=== PATIENT | male | born 1990 | race Caucasian/White ===

== ENCOUNTER 2019-02-24 14:00 | Emergency (ER) | payer OTHER ==
[2019-02-24 14:11] VITALS: BP 136/85
[2019-02-24] MEDS ORDERED: DEXAMETHASONE 10 MG/ML VIAL PO STA (15:00)
[2019-02-24] MEDS ORDERED: PENICILLIN VK 250 MG TABLET PO STA (15:00)
[2019-02-24] MEDS ORDERED: CHERRY SYRUP 10 ML UDC PO ONE (15:00)
--- NOTE | 2019-02-24 15:05 | ED Physician Documentation ---
History of Present Illness - Stated complaint Stated Complaint: SORE THROAT - Chief complaint Chief Complaint: Heent - History obtained from History obtained from: Patient - History of Present Illness Timing: How many days ago (3) Pain level max: 7 Pain level now: 6 - Additonal information Additional information: 20-year-old male with a sore throat for the past 2 to 3 days. Took a dose of penicillin yesterday. Concerned it is possible strep. Worse with swallowing. Nothing makes it better. Review of Systems Nose: reports: Rhinorrhea / runny nose Throat: reports: Sore throat Respiratory: denies: Cough GI: denies: Abdominal Pain, Nausea, Vomiting, Diarrhea Skin: denies: Rash Musculoskeletal: denies: Neck pain, Back pain Neurologic: denies: Headache PD PAST MEDICAL HISTORY - Past Medical History Past Medical History: No - Past Surgical History Past Surgical History: No - Present Medications Home Medications: Ambulatory Orders Medication Instructions Recorded Confirmed Ibuprofen [Motrin] 800 mg PO Q8H PRN #30 tablet 02/24/19 Penicillin V Potassium 500 mg PO Q6HR #40 tablet 02/24/19 - Allergies Allergies/Adverse Reactions: Allergies Allergy/AdvReac Type Severity Reaction Status Date / Time No Known Drug Allergies Allergy Verified 02/24/19 14:05 - Social History Does the pt smoke?: No Smoking Status: Never smoker Does the pt drink ETOH?: No Does the pt have substance abuse?: No - Immunizations Immunizations are current?: Yes - POLST Patient has POLST: No PD ED PE NORMAL - Vitals Vital signs reviewed: Yes - General General: Alert and oriented X 3, No acute distress, Well developed/nourished - HEENT HEENT: PERRL, Moist mucous membranes, Other (Moderate posterior oropharyngeal erythema with out tonsillar exudates. Uvula midline.) - Neck Neck: Supple, no meningeal sign, Other (Shotty anterior lymphadenopathy) - Cardiac Cardiac: RRR, Strong equal pulses - Respiratory Respiratory: No respiratory distress, Clear bilaterally - Abdomen Abdomen: Soft, Non tender, Non distended - Derm Derm: Warm and dry, No rash - Neuro Neuro: Alert and oriented X 3 - Psych Psych: Normal mood, Normal affect Results - Vitals Vitals: Vital Signs - 24 hr 02/24/19 02/24/19 14:06 14:26 Temperature 37.3 C Heart Rate 101 H Respiratory 16 Rate Blood Pressure 136/85 H O2 Saturation 100 Oxygen O2 Source Room air - Labs Labs: Laboratory Tests 02/24/19 14:30 Group A Strep Rapid POSITIVE H PD MEDICAL DECISION MAKING - ED course Complexity details: reviewed results, re-evaluated patient, considered differential, d/w patient ED course: Patient with strep pharyngitis. Will place on penicillin. Given dexamethasone here. He is well-appearing, nontoxic. Afebrile. No peritonsillar or retropharyngeal abscess. Patient counseled regarding signs and symptoms for which I believe and urgent re-evaluation would be necessary. Patient with good understanding of and agreement to plan and is comfortable going home at this time This document was made in part using voice recognition software. While efforts are made to proofread this document, sound alike and grammatical errors may occur. Departure - Departure Disposition: 01 Home, Self Care Clinical Impression: Strep pharyngitis Condition: Good Instructions: ED Strep Pharyngitis Conf Follow-Up: EDG[facility] Morse [Provider Group] - Within 1 week Prescriptions: Penicillin V Potassium 500 mg PO Q6HR #40 tablet Ibuprofen [Motrin] 800 mg PO Q8H PRN #30 tablet PRN Reason: PAIN &/OR FEVER Comments: Follow-up with your doctor in 1 week if not better. Take all antibiotics until gone. Return if you worsen. Discharge Date/Time: 02/24/19 15:32
== END 2019-02-24 15:32 | disposition home or self-care (01) ==
LOC: ED 14:00
DX: J02.0 Streptococcal pharyngitis (principal)
CPT/HCPCS: 87430; 99283; 99284; A9270

== ENCOUNTER 2021-12-19 21:01 | Emergency (ER) | payer OTHER ==
[2021-12-19 21:20] VITALS: BP 146/76
[2021-12-19] MEDS ORDERED: CEPHALEXIN 250 MG Prepack 8 CAP BOTTLE PO STA (21:47)
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
== END 2021-12-19 22:22 | disposition home or self-care (01) ==
LOC: ED 21:01
DX: T81.40XA Infection following a procedure, unspecified, initial encounter (principal); L76.82 Other postprocedural complications of skin and subcutaneous tissue; Y83.8 Other surgical procedures as the cause of abnormal reaction of the patient, or of later complication, without mention of misadventure at the time of the procedure
CPT/HCPCS: 11000; 87070; 87181; 87205

== ENCOUNTER 2022-07-17 16:49 | Emergency (ER) | payer OTHER ==
[2022-07-17 17:04] VITALS: BP 154/95
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
[2022-07-17] MEDS ORDERED: oxyCODONE 5 MG TABLET PO STA ×2 (18:09→20:18)
[2022-07-17] MEDS ORDERED: LIDOCAINE 2%-EPI 1:100000 20 ML MDV SUBQ STA (18:56)
[2022-07-17] MEDS ORDERED: LIDOCAINE MPF 2%-EPI 1:200000 20 ML VIAL ONE (19:04)
[2022-07-17] MEDS ORDERED: LIDOCAINE 2% 10 ML MDV SUBQ ONE (20:01)
[2022-07-17] MEDS ORDERED: DOXYCYCLINE 100 MG TABLET PO STA (20:01)
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
== END 2022-07-17 20:25 | disposition home or self-care (01) ==
LOC: ED 16:49
DX: S01.311A Laceration without foreign body of right ear, initial encounter (principal); V47.6XXA Car passenger injured in collision with fixed or stationary object in traffic accident, initial encounter; Y93.89 Activity, other specified; Y92.410 Unspecified street and highway as the place of occurrence of the external cause
CPT/HCPCS: 99282; 99284; A9270

== ENCOUNTER 2023-02-03 13:20 | Emergency (ER) | payer OTHER ==
[2023-02-03 13:46] VITALS: BP 149/94; O2SAT 98
--- OUTSIDE RECORDS SUMMARY | 2023-02-03 14:09 | EXTERNAL MEDICAL SUMMARY RPT | Continuity of Care Document ---
Author Name Unknown Address [address] [place] [address] Phone Organization [facility] Address [address] [place] [address] Phone Problems date description facility 2023-01-04 09:35 [facility] 2023-01-04 09:35 Shortness of breath [facility] 2023-01-04 09:35 Nondisplaced fractur e of shaft of second metacarpal bone, [facility] 2023-01-04 09:35 Unspecified fracture of shaft of left femur, [facility] 2023-01-04 13:25 Shortness of breath [facility] Results/Labs test date facility value unit notes
--- NOTE | 2023-02-03 14:12 | XRAY Report ---
PROCEDURE: Shoulder 3 View LT INDICATIONS: pain TECHNIQUE: 3 views of the shoulder were acquired. COMPARISON: None. FINDINGS: Bones: No fractures or dislocations. No suspicious bony lesions. Visualized ribs appear intact. Soft tissues: No suspicious soft tissue calcifications. The visualized lungs are within normal limi ts. IMPRESSION: No acute bony abnormality. Reviewed by: Faheem Bishop MD on 02/03/2023 2:11 PM PDT Approved by: Faheem Bishop MD on 02/03/2023 2:11 PM PDT Station ID: [id number]
--- NOTE | 2023-02-03 14:15 | ED Physician Documentation ---
PD HPI UPPER EXT INJURY - Stated complaint Stated Complaint: LT SHOULDER PX - Chief complaint Chief Complaint: Ext Problem - History obtained from History obtained from: Patient - Additonal information Additional information: Patient is a 32-year-old male presenting for evaluation of left shoulder pain that has been hurting for the past 6 weeks. Patient states that he was doing a handstand while playing with his children and felt a pop and since then it has been hurting. He has tried conservative therapies with acetaminophen and ibuprofen without any improvement. He thought the pain would get better but it has not. He reports the pain feels worse at night. He has not been to his PCP or anyone else for prior evaluation. Denies prior injuries to this shoulder. Review of Systems Constitutional: denies: Fever Cardiac: denies: Chest pain / pressure Respiratory: denies: Dyspnea Musculoskeletal: reports: Joint pain Neurologic: denies: Head injury PD PAST MEDICAL HISTORY - Past Surgical History Past Surgical History: Yes Ortho: Other - Present Medications Home Medications: Ambulatory Orders Medication Instructions Recorded Confirmed HYDROcod/ACETAM 5/325 [[place] 5/325] 1 tablet PO Q6H PRN #12 tablet 02/03/23 - Allergies Allergies/Adverse Reactions: Allergies Allergy/AdvReac Type Severity Reaction Status Date / Time No Known Drug Allergies Allergy Verified 07/17/22 17:04 - Social History Does the pt smoke?: No Smoking Status: Never smoker Does the pt drink ETOH?: No Does the pt have substance abuse?: No - Immunizations Immunizations are current?: Yes - POLST Patient has POLST: No PD ED PE NORMAL - General General: Alert and oriented X 3, No acute distress, Well developed/nourished - HEENT HEENT: Atraumatic - Neck Neck: Supple, no meningeal sign, No bony TTP, C-Spine cleared by NEXUS criteria - Cardiac Cardiac: RRR, Strong equal pulses - Respiratory Respiratory: No respiratory distress - Back Back: No spinal TTP - Derm Derm: Warm and dry - Extremities Extremities: No deformity, Other (Tenderness to anterior left shoulder with no deformities, able to abduct to 90 degrees and reports pain past 90 degrees, able to touch opposite shoulder with his left hand, pain with range of motion behind his back,) Results - Vitals Vitals: Vital Signs - 24 hr 02/03/23 13:33 Temperature 36.7 C Heart Rate 95 Respiratory 16 Rate Blood Pressure 149/94 H O2 Saturation 98 Oxygen O2 Source Room air PD Medical Decision Making - ED course Complexity details: reviewed results, re-evaluated patient, d/w patient ED course: Patient is a 32-year-old presenting for evaluation of left shoulder pain after injury 6 weeks ago. No deformities noted on exam. Exam does not suggest dislocation. X-ray was obtained which I reviewed I see no fracture or dislocation. Discussed other etiologies for his pain and that close follow-up at the [facility] is required given the duration of his symptoms. Patient has not had any improvement in his symptoms with use of kand-ixv-nyqghlq medications I did prescribe a small amount of narcotic medications to be used sparingly. Patient was also given a sling to use for support but was also advised to range of motion his arm several times a day to avoid a frozen shoulder. Patient is advised on concerning symptoms to return for. Departure - Departure Disposition: 01 Home, Self Care Clinical Impression: Injury of left shoulder Condition: Stable Instructions: ED Shoulder Pain [facility] Follow-Up: EDG[facility] Morse [Provider Group] Prescriptions: HYDROcod/ACETAM 5/325 [[place] 5/325] 1 tablet PO Q6H PRN #12 tablet PRN Reason: Pain Comments: Your shoulder x-ray does not show a broken bone or dislocation. You may have an underlying injury that may require an MRI to diagnose. I would recommend close follow-up with your primary care at the [facility]. In the meanwhile I have given you a sling to utilize for support but I would recommend getting your arm out of the sling several times a day and to keep it moving. I have also sent a small amount of pain medication to [facility] in [place]. Please use this sparingly. I am prescribing a short course of narcotic pain medication for you. These are potentially dangerous and addictive medications that should be used carefully. These medications may constipate you. Take an rgro-slu-hppefhh stool softener (docusate) twice daily with plenty of water while taking these medications. If you go 24 hours without a bowel movement, take rwvj-yzj-tdnobem miralax, per package instructions. Do not drink or drive while taking these medications. If you received narcotic or sedating medications while in the emergency department, do not drive for 24 hours. Store this medication in a safe, secure place and out of reach of children. It is a violation of federal law to give or sell this medication to another person or to use in a manner other than prescribed. The ED will not refill narcotic prescriptions, including prescriptions lost or stolen. To dispose of unwanted medications: 1. [facility] at [address] in [place] has a medication drop box. They accept prescription medications (in pill form) Monday through Monday 9:00 a.m. to 5:00 p.m. 2. The [facility] accepts prescription medications (in pill form only) for disposal year round. Call for more information. 3. Contact the [facility] for the next [facility] sponsored prescription drug collection event. , [phone], or [phone]; Note that many narcotic pain relievers also contain Tylenol/acetaminophen. Please ensure that your total dose of acetaminophen from all sources does not exceed 3 g (3000 mg) per day. Forms: PCP List Discharge Date/Time: 02/03/23 14:51
== END 2023-02-03 14:51 | disposition home or self-care (01) ==
LOC: ED 13:20
DX: S49.92XA Unspecified injury of left shoulder and upper arm, initial encounter (principal); X58.XXXA Exposure to other specified factors, initial encounter
CPT/HCPCS: 99283

== ENCOUNTER 2023-03-11 14:05 | Outpatient (CLI) | payer OTHER ==
--- NOTE | 2023-03-13 13:45 | MRI Report ---
PROCEDURE: SHOULDER WO - LT INDICATIONS: LEFT SHOULDER PAIN TECHNIQUE: Noncontrast oblique coronal T2 fast spin echo with fat saturation, oblique sagittal T1 spin echo and T2 fast spin echo with fat saturation, axial T1 spin echo and T2 fast spin echo with fat saturation t hrough the shoulder. COMPARISON: Left shoulder radiographs 02/03/2023. FINDINGS: Image quality: Excellent. Rotator cuff: Mild supraspinatus and infraspinatus tendinosis. No acute rotator cuff tendon tearing is seen. Soft tissue edema is seen within the teres minor muscle adjacent to the osseous mass. Bones and bursae: Osseous mass is seen involving the proximal humerus from the humeral head through the visualized portion of the humeral shaft. There is circumferential extraosseous extension of the m ass into the surrounding soft tissues, with the thickest portion measuring approximately 1.4 cm beyon d the cortical bone. The maximum axial dimensions the mass is approximately 6.0 x 5.5 cm at the level of the proximal humeral metadiaphysis. No definite radiographic correlate is seen on the prior exam from 02/03/2023. No matrix calcifications are identified. There is a moderate glenohumeral effusion. T he remaining versus osseous structures appear to be intact without additional osseous lesions identif ied. There is a small amount of fluid in the subacromial/subdeltoid bursa. Capsule and soft tissues: Soft tissue edema is seen surrounding the osseous mass. Nonspecific edema i s seen within the deltoid muscle. Multiple enlarged axillary adenopathy is seen, largest which measur es up to 1.9 cm in short axis on the coronal sequence. There is surface tearing of the posterosuperio r to posteroinferior labrum. Proximal biceps long head tendon is intact. Increased signal intensity i s seen within the inferior glenohumeral ligament near its humeral attachment. IMPRESSION: 1.Aggressive osseous mass is seen throughout the visualized portion of the proximal humerus with circ umferential extraosseous extension. No definite correlate is seen radiographically. Primary different ial considerations include a primary osseous malignancy such as osteosarcoma versus plasmacytoma or m etastatic disease. Recommend referral to orthopedic oncology. 2.Multiple enlarged left axillary lymph nodes are suspicious for flavio metastatic disease. Reviewed by: Jimmy Todd MD on 03/13/2023 1:44 PM PDT Approved by: Jimmy Todd MD on 03/13/2023 1:44 PM PDT Station ID: [id number]
== END 2023-03-11 14:06 | disposition home or self-care (01) ==
LOC: DI 14:05
PROVIDERS: ATTEND Nurse Practitioner Family
DX: M89.3 Hypertrophy of bone (principal); R59.0 Localized enlarged lymph nodes

== ENCOUNTER 2023-03-13 15:48 | Emergency (ER) | payer OTHER ==
--- NOTE | 2023-03-13 16:41 | ED Physician Documentation ---
PD HPI UPPER EXT INJURY - Stated complaint Stated Complaint: LT SHOULDER PX - Chief complaint Chief Complaint: Ext Problem - History obtained from History obtained from: Patient - History of Present Illness Location: Left, Shoulder Type of injury: Twist (states onset of shoulder pain when playing with his kids 2 1/2 mmonths ago (end of November) with pain on ROM at that time. Has continued with pain on ROM, increasingly.) Where injury occurred: Home Timing - onset: How many months ago (2 1/2 months ago onset, with Rx with NSAIDs and Tylenol, some pain meds Rx. Had sling given for decreased use/ROM. He says felt worse with that. Plain xray done a month ago without acute abnormality noted.) Timing - duration: Months Similar symptoms before: Diagnosis (was having diagnosis of presumed rotator cuff injury or labral tear.) Recently seen: Clinic (seen by PCP about this again recently and had outpt MRI ordered which was done 2 days ago with radiology report today. Patient had not gotten MRI report as yet. Having more pain today so referred to ER for eval after calling PCP clinic.), Emergency Dept (seen a month ago for this in ER with normal plain xray. Rx with sling, pain meds, NSAIDs and to follow up PCP.) Review of Systems Constitutional: denies: Fever, Chills Skin: denies: Rash, Lesions Musculoskeletal: denies: Neck pain Neurologic: reports: Numbness (intermittent numbness down inner arm adn little finger, not consistent.). denies: Focal weakness PD PAST MEDICAL HISTORY - Past Medical History Cardiovascular: None Respiratory: None Endocrine/Autoimmune: None Musculoskeletal: Other (femur fracture earlier in the year with subsequent healing and normal use. ) - Past Surgical History Past Surgical History: Yes Ortho: Other - Present Medications Home Medications: Ambulatory Orders Medication Instructions Recorded Confirmed HYDROcod/ACETAM 5/325 [[place] 5/325] 1 tablet PO Q6H PRN #12 tablet 02/03/23 Meloxicam [Mobic] 7.5 mg PO BID 10 Days #20 tablet 03/13/23 Oxycodone HCl/Acetaminophen 1 each PO Q6H PRN #25 tablet 03/13/23 [Percocet 5-325 mg Tablet] - Allergies Allergies/Adverse Reactions: Allergies Allergy/AdvReac Type Severity Reaction Status Date / Time No Known Drug Allergies Allergy Verified 10/23/23 15:54 - Social History Does the pt smoke?: No Smoking Status: Never smoker Does the pt drink ETOH?: No Does the pt have substance abuse?: No - Immunizations Immunizations are current?: Yes - POLST Patient has POLST: No PD ED PE NORMAL - Vitals Vital signs reviewed: Yes - General General: Alert and oriented X 3, Well developed/nourished, Other (uncomfortable with any ROM of the left shouder. No noted deformity nor effusion. Some axillary adenopathy noted. No skin sores. ) - Cardiac Cardiac: RRR, No murmur - Respiratory Respiratory: Clear bilaterally Results - Vitals Vitals: Vital Signs - 24 hr 03/13/23 03/13/23 03/13/23 15:54 16:40 18:03 Temperature 36.5 C Heart Rate 90 106 H 99 Respiratory 16 6 L 20 Rate Blood Pressure 139/85 H 157/101 H 145/94 H O2 Saturation 96 98 100 Oxygen O2 Source Room air PD Medical Decision Making - ED course Complexity details: reviewed old records (report of MRI from 2 days ago. I viewed MRI images directly too. ), reviewed results (I reviewed the MRI report for the imaging done 2 days ago, reported out today. Showing apparent bone tumor. Some labral inflammation and bursal inflammation, but mainly some axil meredith nodes and significant bone abnormality humeral head c/w osteosarcoma or other bone tumor.), considered differential, d/w patient Reviewed Lab Results: I revierwed the MRI report showing concern for bone tumor and node involvement. Discussed it with our ORtho, who said the appropriate referral would be Ortho oncology. I contacted the transfer center for and they provided the clinic number for the patient to call (initially did not have the number but [facility] called back to our [facility] and gave the number, which nursing called to the patient and provided the number). The patient should contact PCP tomorrow to ensure this is the best referral, or if they prefer through the , such as [facility]). Departure - Departure Disposition: 01 Home, Self Care Clinical Impression: Shoulder pain, Bone lesion Condition: Stable Record reviewed to determine appropriate education?: Yes Follow-Up: ABBY WHEATLEY NP [Primary Care Provider] - Prescriptions: Meloxicam [Mobic] 7.5 mg PO BID 10 Days #20 tablet Oxycodone HCl/Acetaminophen [Percocet 5-325 mg Tablet] 1 each PO Q6H PRN #25 tablet PRN Reason: pain Comments: The MRI of your shoulder is showing an apparent bone tumor in the head of the humerus. This was not evident on the plain x-ray but appears quite abnormal on the MRI. There is also some swollen lymph nodes in the area. This would be concerning for a bone tumor or bone cancer and needs follow-up with biopsy and further evaluation. I have a call out to the orthopedics to see about the appropriate follow-up clinic with them. I have not heard back from them as yet but we can call you later with the appropriate clinic name and number. [place] if they would rather have you an alternative route for evaluation of this such as [facility] or such. This will want follow-up in the immediate future to further diagnose and treat this aggressively. It would still be appropriate to have activity as tolerated in the sling use if needed for reduced motion. An anti-inflammatory can make sense and I wrote for a longer acting 1 called meloxicam twice daily with food. To that add Tylenol every 4-6 hours if needed for pain. Alternatively oxycodone/acetaminophen if needed for worse pain. I sent these prescriptions to [facility] pharmacy in [place]. Follow-up with specialized orthopedics for presumed bone biopsy and further evaluation. I am prescribing a short course of narcotic pain medication for you. These are potentially dangerous and addictive medications that should be used carefully. These medications may constipate you. Take an oygb-owe-xatuotu stool softener such as docusate twice daily with plenty of water while taking these medications. If you go 24 hours without a bowel movement, take ltqc-ork-lqedubp MiraLAX, per package instructions. Do not drink or drive while taking these medications. If you received narcotic or sedating medications while in the emergency department do not drive for 24 hours. Store this medication in a safe, secure place and out of reach of children. It is a violation of federal law to give or sell this medication to another person or to use in a manner other than prescribed. The ED will not refill narcotic prescriptions, including prescriptions lost or stolen. You can dispose of unwanted medications at the [facility]'s office or at several pharmacies such as [facility]. Forms: PCP List Discharge Date/Time: 03/13/23 18:06
[2023-03-13] MEDS ORDERED: KETOROLAC 30 MG/ML VIAL IM STA (17:35)
[2023-03-13 18:10] VITALS: BP 145/94; O2SAT 100
== END 2023-03-13 18:06 | disposition home or self-care (01) ==
LOC: ED 15:48
DX: M25.512 Pain in left shoulder (principal); D49.2 Neoplasm of unspecified behavior of bone, soft tissue, and skin
CPT/HCPCS: 96372; 99283; 99284

== ENCOUNTER 2023-03-25 21:08 | Emergency (ER) | payer OTHER ==
[2023-03-25 21:14] VITALS: BP 150/90; O2SAT 99
--- NOTE | 2023-03-25 21:22 | ED Physician Documentation ---
History of Present Illness - Stated complaint Stated Complaint: LT SHOULDER PX - Chief complaint Chief Complaint: Ext Problem - History obtained from History obtained from: Patient - Additonal information Additional information: HPI from patient. Patient's chief complaint is left shoulder pain since November, constant and steadily progressive. He had unremarkable plain-film left shoulder x-rays in January. Unfortunately, an MRI of the shoulder that was performed 03/11/2023 demonstrated "aggressive osseous mass is seen throughout the visualized portion of the proximal humerus with circumferential extraosseous extension. Primary differential considerations include a primary osseous malignancy such as osteosarcoma versus plasmacytoma or metastatic disease. Multiple enlarged left axillary lymph nodes are suspicious for flavio metastatic disease". This is per the radiologist interpretation. The patient has been evaluated in this emergency department on 03/13 for pain control, was prescribed Percocet. He returned on 03/21 having run out of the Percocet and was again prescribed more of the Percocet. He says his primary care provider is also prescribed Celebrex. Patient says he has a referral to an oncologist for later this month. The reason he is presenting to the ED at this time is he is now having pain that is not controlled with his Percocet. He has 2 tablets of Percocet left and is requesting some form of pain control until he can [place] Review of Systems Constitutional: denies: Fever Respiratory: denies: Dyspnea, Cough Musculoskeletal: reports: Joint pain. denies: Joint swelling Neurologic: reports: Numbness (occasional paresthesias LUE to fingers) PD PAST MEDICAL HISTORY - Past Medical History Past Medical History: Yes Cardiovascular: Hypertension Respiratory: None Neuro: None Endocrine/Autoimmune: None GI: None : None HEENT: None Psych: None Musculoskeletal: Other Derm: None - Past Surgical History Past Surgical History: Yes Ortho: Other - Present Medications Home Medications: Ambulatory Orders Medication Instructions Recorded Confirmed Meloxicam [Mobic] 7.5 mg PO BID 10 Days #20 tablet 03/13/23 03/25/23 Oxycodone HCl/Acetaminophen 1 - 2 each PO Q6H PRN #20 tablet 03/21/23 03/25/23 [Percocet 5-325 mg Tablet] MDD 6 tabs Celecoxib 200 mg PO DAILY 03/25/23 03/25/23 Gabapentin [Neurontin] 600 mg PO QPM 03/25/23 03/25/23 HYDROmorphone [Dilaudid] 2 - 4 mg PO Q6H PRN #14 tablet 03/25/23 - Allergies Allergies/Adverse Reactions: Allergies Allergy/AdvReac Type Severity Reaction Status Date / Time No Known Drug Allergies Allergy Verified 03/25/23 21:11 - Social History Does the pt smoke?: No Smoking Status: Never smoker Does the pt drink ETOH?: No Does the pt have substance abuse?: No - Immunizations Immunizations are current?: Yes - POLST Patient has POLST: No PD ED PE NORMAL - Vitals Vital signs reviewed: Yes - General General: Alert and oriented X 3, No acute distress, Well developed/nourished - Extremities Extremities: No edema PD ED PE EXPANDED - Extremities Extremities: Tenderness, Limited ROM, Left shoulder, Sensory intact (LTS intact left ) Results - Vitals Vitals: Vital Signs - 24 hr 03/25/23 21:11 Temperature 36.8 C Heart Rate 100 Respiratory 16 Rate Blood Pressure 150/90 H O2 Saturation 99 Oxygen O2 Source Room air PD Medical Decision Making - ED course Complexity details: reviewed old records (MRI 03/11/23 (see below)) ED course: MRI report reviewed (performed 03/11/23). Radiologist's interpretation is: 1.Aggressive osseous mass is seen throughout the visualized portion of the proximal humerus with circumferential extraosseous extension. No definite correlate is seen radiographically. Primary differential considerations include a primary osseous malignancy such as osteosarcoma versus plasmacytoma or metastatic disease. Recommend referral to orthopedic oncology. 2.Multiple enlarged left axillary lymph nodes are suspicious for flavio metastatic disease. Patient presents requesting pain control. He only has 2 Percocet left, but notes that they have been providing inadequate relief. I am providing the patient a prescription for a short course of p.o. Dilaudid 2 mg tablets, and he is given 2 of these tablets to take home. He says he [place] office [place] to discuss pain control and get an update on the referral process. Departure - Departure Disposition: 01 Home, Self Care Clinical Impression: Shoulder pain Qualifiers: Chronicity: acute Laterality: left Qualified Code(s): M25.512 - Pain in left shoulder Condition: Good Instructions: ED Tumor [facility] Follow-Up: EDGAR Morse [Provider Group] Prescriptions: HYDROmorphone [Dilaudid] 2 - 4 mg PO Q6H PRN #14 tablet PRN Reason: Pain >8 Comments: I am providing you with a prescription for hydromorphone. Most people find this is noticeably more effective (stronger) then Vicodin or Percocet. As we discuss ed, you should contact your primary care provider when their office opens on Monday to inquire about expediting the follow-up. Mention that you had to come back to the emergency department because of worsening pain that was not responding adequately to your current prescription regimen Forms: PCP List Discharge Date/Time: 03/25/23 22:00
[2023-03-25] MEDS ORDERED: HYDROmorphone 2 MG TABLET PO STA (21:41)
== END 2023-03-25 22:00 | disposition home or self-care (01) ==
LOC: ED 21:08
DX: M25.512 Pain in left shoulder (principal)
CPT/HCPCS: 99282; 99283; A9270

== ENCOUNTER 2023-05-25 14:49 | Outpatient (CLI) | payer OTHER ==
[2023-05-25 15:07] LABS: BASOPHILS # (AUTO) 0.1 10^3/uL (0.0-0.1); BASOPHILS % (AUTO) 0.6 %; EOSINOPHILS # (AUTO) 0.1 10^3/uL (0.0-0.7); EOSINOPHILS % (AUTO) 0.5 %; HCT - HEMATOCRIT 42.3 % (42.0-52.0); HGB - HEMOGLOBIN 13.6 g/dL (14.0-18.0); LYMPHOCYTES % (AUTO) 7.8 %; MEAN CORPUSCULAR HEMOGLOBIN 28.3 pg (27.0-31.0); MEAN CORPUSCULAR HGB CONC 32.2 g/dL (32.0-36.0); MEAN CORPUSCULAR VOLUME 88.1 fL (80.0-94.0); MEAN PLATELET VOLUME 10.3 fL (7.4-11.4); MONOCYTES # (AUTO) 0.5 10^3/uL (0.0-1.0); PLT - PLATELET COUNT 238 10^3/uL (130-450); RED CELL DISTRIBUTION WIDTH 14.6 % (12.0-15.0); WHITE BLOOD COUNT 12.1 x10^3/uL (4.8-10.8)
[2023-05-25 15:22] LABS: ALBUMIN 4.5 g/dL (3.2-5.5); ALBUMIN/GLOBULIN RATIO 1.6 (1.0-2.2); BILIRUBIN,TOTAL 0.3 mg/dL (0.2-1.0); CALCIUM 9.7 mg/dL (8.5-10.3); CREATININE 0.9 mg/dL (0.6-1.3); POTASSIUM 3.9 mmol/L (3.5-4.5); TOTAL PROTEIN 7.4 g/dL (6.4-8.9); URIC ACID 3.3 mg/dL (4.4-7.6)
== END 2023-05-25 14:50 | disposition home or self-care (01) ==
LOC: LAB 14:49
DX: C83.30 Diffuse large B-cell lymphoma, unspecified site (principal)
CPT/HCPCS: 36415; 80053; 83615; 84550; 85025

== ENCOUNTER 2023-07-27 08:00 | Outpatient (CLI) | payer OTHER | END 2023-07-27 23:59 | disposition home or self-care (01) | LOC: PC 08:00 | PROVIDERS: ATTEND Nurse Practitioner Adult Health | DX: Z51.5 Encounter for palliative care (principal); G89.3 Neoplasm related pain (acute) (chronic); C83.34 Diffuse large B-cell lymphoma, lymph nodes of axilla and upper limb; R63.0 Anorexia; K59.03 Drug induced constipation; F41.8 Other specified anxiety disorders; G47.00 Insomnia, unspecified | CPT/HCPCS: 99215; 99417 ==

== ENCOUNTER → 2023-08-15 | Outpatient (CLI) | payer OTHER | LOC: PC 08:00 | PROVIDERS: ATTEND Nurse Practitioner Adult Health | DX: Z51.5 Encounter for palliative care (principal); G89.3 Neoplasm related pain (acute) (chronic); C83.34 Diffuse large B-cell lymphoma, lymph nodes of axilla and upper limb; M79.652 Pain in left thigh; G47.00 Insomnia, unspecified; F41.8 Other specified anxiety disorders ==

== ENCOUNTER 2023-09-07 08:00 | Outpatient (CLI) | payer OTHER | END 2023-09-07 23:59 | disposition home or self-care (01) | LOC: PC 08:00 | PROVIDERS: ATTEND Nurse Practitioner Adult Health | DX: Z51.5 Encounter for palliative care (principal); G89.3 Neoplasm related pain (acute) (chronic); C85.14 Unspecified B-cell lymphoma, lymph nodes of axilla and upper limb; R19.7 Diarrhea, unspecified; F41.8 Other specified anxiety disorders; Z71.89 Other specified counseling; J30.9 Allergic rhinitis, unspecified | CPT/HCPCS: 99215 ==

== ENCOUNTER 2023-10-03 08:00 | Outpatient (CLI) | payer OTHER | END 2023-10-03 23:59 | disposition home or self-care (01) | LOC: PC 08:00 | PROVIDERS: ATTEND Nurse Practitioner Adult Health | DX: Z51.5 Encounter for palliative care (principal); C83.39 Diffuse large B-cell lymphoma, extranodal and solid organ sites; G89.3 Neoplasm related pain (acute) (chronic); F41.8 Other specified anxiety disorders; F90.9 Attention-deficit hyperactivity disorder, unspecified type; Z92.21 Personal history of antineoplastic chemotherapy; R53.83 Other fatigue; G47.9 Sleep disorder, unspecified; R20.2 Paresthesia of skin; R68.82 Decreased libido; T45.1X5A Adverse effect of antineoplastic and immunosuppressive drugs, initial encounter; Z79.899 Other long term (current) drug therapy; Z59.89 Other problems related to housing and economic circumstances; Z87.828 Personal history of other (healed) physical injury and trauma | CPT/HCPCS: 99215 ==

== ENCOUNTER 2023-10-30 08:00 | Outpatient (CLI) | payer OTHER | END 2023-10-30 23:59 | disposition home or self-care (01) | LOC: PC 08:00 | PROVIDERS: ATTEND Nurse Practitioner Adult Health | DX: Z51.5 Encounter for palliative care (principal); C85.10 Unspecified B-cell lymphoma, unspecified site; G62.0 Drug-induced polyneuropathy; T45.1X5A Adverse effect of antineoplastic and immunosuppressive drugs, initial encounter; F41.8 Other specified anxiety disorders; Z71.89 Other specified counseling | CPT/HCPCS: 99215 ==